=== PATIENT | female | born 1955 | race Caucasian/White ===

== ENCOUNTER 2017-06-06 18:41 | Emergency (ER) | payer SELFPAY ==
[~2017-06-06] VITALS: Ht 157.5 cm; Wt 94.9 kg
[~2017-06-06 18:41] MED LIST: AMT50 PO; LANS15CA6 PO; SIMV20TA2 PO
[2017-06-06 18:46] VITALS: TEMP 36.7; Ht 157.5 cm; Wt 94.9 kg
[2017-06-06] MEDS ORDERED: SODIUM CHLORIDE 0.9% 1000ML 1,000 ML IV STA (19:07)
[2017-06-06] MEDS ORDERED: DiphenhydrAMINE HCL 50 MG/ML VIAL IV STA (19:29)
[2017-06-06] MEDS ORDERED: METHYLPREDNISOLONE 125 MG VIAL IV STA (19:29)
[2017-06-06] MEDS ORDERED: CYAN10005 PO (19:35)
[2017-06-06] MEDS ORDERED: MAGN400T6 PO (19:35)
[2017-06-06] MEDS ORDERED: PRENTAB26 PO (19:35)
[2017-06-06] MEDS ORDERED: ACET-1256 PO (19:35)
[2017-06-06] MEDS ORDERED: FERR1TAB23 PO (19:35)
[2017-06-06] MEDS ORDERED: ASCO250T4 PO (19:35)
[2017-06-06] MEDS ORDERED: VITATAB19 PO (19:35)
[2017-06-06] MEDS ORDERED: BIOT1CAP8 PO (19:35)
[2017-06-06 19:39] LABS: BASO % 0.2 %; BASO ABS # 0.02 K/uL (0-0.2); COMPLETE YES; EOS % 1.7 %; LYMPH % 19.2 %; LYMPH ABS # 2.42 K/uL (1.2-3.4); MEAN CELL VOLUME 90.3 fL (80-100); MEAN CORPUSCULAR HGB CONC 33.3 g/dl (32-36); MEAN PLATELET VOLUME 9.6 fL (7.4-10.4); MONO % 8.6 %; NEUT % 69.3 %; PLATELET COUNT 384 K/uL (130-400); RED BLOOD COUNT 4.43 M/uL (4.2-5.4); WHITE BLOOD COUNT 12.58 K/uL (4.8-10.8)
[2017-06-06] MEDS ORDERED: OPTIRAY 320 IV PRN (19:45)
[2017-06-06 19:51] LABS: URINE APPEARANCE CLEAR (CLEAR); URINE BILIRUBIN NEG (NEG); URINE COLOR YELLOW; URINE NITRITE NEG (NEG); URINE PH 6.5 (4.5-7.5); URINE SPECIFIC GRAVITY 1.011 (1.000-1.030); UROBILINOGEN NEG (NEG)
[2017-06-06 19:54] LABS: ALT/SGPT 33 U/L (12-78); AST/SGOT 10 U/L (15-37); BLOOD UREA NITROGEN 10 mg/dl (7-18); BUN/CREATININE RATIO 12.1 (10-20); CALCIUM 9.5 mg/dl (8.5-10.1); CARBON DIOXIDE 28 mmol/L (21-32); CHLORIDE 106 mmol/L (98-107); CREATININE 0.84 mg/dl (0.60-1.20); GLUCOSE 96 mg/dl (70-99); SODIUM 141 mmol/L (136-145)
[2017-06-06 19:55] LABS: MANUAL MICROSCOPIC REQUIRED? NO; REVIEW REQ? NO
[2017-06-06 19:57] LABS: ALKALINE PHOSPHATASE 165 U/L (45-117)
--- NOTE | 2017-06-06 20:21 | DIAGNOSTIC IMAGING REPORT ---
ABD/PELVIS IV CONTRAST ONLY CT DOSE: 845.90 mGy.cm HISTORY: Pain eval diverticulitis, abscess, perf TECHNIQUE: Multiaxial CT images of the abdomen and pelvis were performed following the use of intravenous contrast. A dose lowering technique was utilized adhering to the principles of ALARA. COMPARISON STUDY: None. FINDINGS: Lung bases are clear. The liver spleen and pancreas are unremarkable. Gallbladder is contracted. There is a small gallstone the region of the gallbladder neck. The appendix is unremarkable. Kidneys negative for hydronephrosis. There are findings of acute descending as well as sigmoid diverticulitis. Moderate pericolonic infiltrative change. No evidence for abscess collection or obstruction. Moderate wall thickening. Bladder is midline. No free fluid within the pelvic cul-de-sac. The appendix is normal. IMPRESSION: 1. Acute sigmoid and descending colonic diverticulitis. 2. Moderate pericolonic infiltrative change. 3. No evidence for abscess collection or obstruction. 4. Small gallstone the region of the gallbladder neck with the gallbladder moderately contracted. The above report was generated using voice recognition software. It may contain grammatical, syntax or spelling errors. Electronically signed by: Ebenezer Oropeza M.D. 06/06/2017 8:19 PM Dictated Date/Time: 06/06/2017 8:16 PM
--- NOTE | 2017-06-06 21:16 | EMERGENCY ROOM VISIT NOTE ---
History First contact with patient: 18:52 Chief Complaint: ABDOMINAL PAIN Stated Complaint: LOWER ABDOMEN PAIN Nursing Triage Summary: pt c/o sharp abd pain for the past 2 weeks. denies n/v/d. state "my bowels are not acting appropriately". Hx of diverticulitis History of Present Illness The patient is a 61 year old female who presents to the Emergency Room with complaints of left lower quadrant pain for the past 2 weeks. She describes the pain as sharp, constant but comes and goes in severity, does not radiate, 02/25. She has had some associated loose bowel movements, but denies diarrhea, constipation, blood in her stool, nausea or vomiting, fevers. She does say that she has had some chills and night sweats off and on for the past several days. She reports a history of diverticulitis, states she has had at least 5 or 6 bouts in the past 10 years, and states that this feels similar. Abdominal surgical history includes a bilateral tubal ligation, denies any other abdominal surgeries. She has been taking Tylenol and Motrin at night for the pain, she denies any medications. She does note that she ran out of her medical insurance several months ago and has not been taking any of her prescribed medications and does not currently have a PCP. She denies any chest pain, shortness of breath, palpitations, dizziness or syncope, back pain, urinary symptoms, rash. Review of Systems A complete 10 point review of systems was reviewed with the patient with pertinent positives and negatives as per history of present illness. All else were negative. Past Medical/Surgical History GERD, migraines, depression Social History Smoking Status: Current Every Day Smoker Alcohol Use: none Drug Use: none Current/Historical Medications Scheduled Acetaminophen (Tylenol), 500 MG PO prn ud Amoxicillin & Pot Clavulanate (Augmentin 875-125 mg), 1 TAB PO BID Ascorbic Acid (Vitamin C), 1 CAP PO BID Biotin (Biotin), 1 CAP PO BID Cyanocobalamin (Vitamin B-12), 1 TAB PO BID Ferrous Sulfate (Iron), 1 TAB PO DAILY Magnesium Oxide (Mag-Ox), 400 MG PO BID Multivit/Min/Iron/Fol Ac/Pren ( Vitamin), 1 TAB PO DAILY Vitamin A-Beta Carotene (Vitamin A), 1 TAB PO DAILY Allergies Coded Allergies: Iodinated Contrast Media (Verified Allergy, Severe, DIFFICULTY BREATHING, 03/28/13) Sulfa Antibiotics (Verified Allergy, Severe, ITCHY, 06/06/17) Physical Exam Vital Signs Date Time Temp Pulse Resp B/P (MAP) Pulse Ox O2 Delivery O2 Flow Rate FiO2 06/06/17 22:11 77 18 132/76 94 06/06/17 20:56 79 18 119/73 95 Room Air 06/06/17 19:25 81 06/06/17 18:46 36.7 86 18 129/73 97 Room Air Physical Exam CONSTITUTIONAL: No acute distress. Mildly dehydrated, but otherwise well appearing and well nourished. Alert and oriented X 4 with normal affect. HEENT: Normocephalic, atraumatic. Pupils equal, round and reactive to light, EOMI. TMs normal. Pharynx normal. NECK: Supple, full active range of motion without discomfort. RESPIRATORY: Clear to auscultation bilaterally with no wheezing, crackles, rhonchi or stridor. Equal expansion bilaterally. CARDIOVASCULAR: Regular rate and rhythm with no murmurs, rubs or gallops. Normal peripheral perfusion. No edema. GASTROINTESTINAL: Significantly tender in the left lower quadrant, but no guarding or rebound tenderness, the abdomen is otherwise nontender. No CVA tenderness. Soft, nondistended. Bowel sounds present in all quadrants. MUSCULOSKELETAL: Full range of motion of all joints without discomfort. INTEGUMENTARY: No rash or other significant dermatologic conditions noted. NEUROLOGIC: Cranial nerves II-XII grossly intact. No focal neurologic deficits noted. Medical Decision & Procedures ER Provider Diagnostic Interpretation: ABD/PELVIS IV CONTRAST ONLY CT DOSE: 845.90 mGy.cm HISTORY: Pain eval diverticulitis, abscess, perf TECHNIQUE: Multiaxial CT images of the abdomen and pelvis were performed following the use of intravenous contrast. A dose lowering technique was utilized adhering to the principles of ALARA. COMPARISON STUDY: None. FINDINGS: Lung bases are clear. The liver spleen and pancreas are unremarkable. Gallbladder is contracted. There is a small gallstone the region of the gallbladder neck. The appendix is unremarkable. Kidneys negative for hydronephrosis. There are findings of acute descending as well as sigmoid diverticulitis. Moderate pericolonic infiltrative change. No evidence for abscess collection or obstruction. Moderate wall thickening. Bladder is midline. No free fluid within the pelvic cul-de-sac. The appendix is normal. IMPRESSION: 1. Acute sigmoid and descending colonic diverticulitis. 2. Moderate pericolonic infiltrative change. 3. No evidence for abscess collection or obstruction. 4. Small gallstone the region of the gallbladder neck with the gallbladder moderately contracted. Laboratory Results 06/06/17 19:20 Red Blood Count 4.43, Mean Corpuscular Volume 90.3, Mean Corpuscular Hemoglobin 30.0, Mean Corpuscular Hemoglobin Concent 33.3, Mean Platelet Volume 9.6, Neutrophils (%) (Auto) 69.3, Lymphocytes (%) (Auto) 19.2, Monocytes (%) (Auto) 8.6, Eosinophils (%) (Auto) 1.7, Basophils (%) (Auto) 0.2, Neutrophils # (Auto) 8.71, Lymphocytes # (Auto) 2.42, Monocytes # (Auto) 1.08, Eosinophils # (Auto) 0.22, Basophils # (Auto) 0.02 06/06/17 19:20 Test 06/06/17 19:20 White Blood Count 12.58 K/uL (4.8-10.8) Red Blood Count 4.43 M/uL (4.2-5.4) Hemoglobin 13.3 g/dL (12.0-16.0) Hematocrit 40.0 % (37-47) Mean Corpuscular Volume 90.3 fL (80-100) Mean Corpuscular Hemoglobin 30.0 pg (25-34) Mean Corpuscular Hemoglobin Concent 33.3 g/dl (32-36) Platelet Count 384 K/uL (130-400) Mean Platelet Volume 9.6 fL (7.4-10.4) Neutrophils (%) (Auto) 69.3 % Lymphocytes (%) (Auto) 19.2 % Monocytes (%) (Auto) 8.6 % Eosinophils (%) (Auto) 1.7 % Basophils (%) (Auto) 0.2 % Neutrophils # (Auto) 8.71 K/uL (1.4-6.5) Lymphocytes # (Auto) 2.42 K/uL (1.2-3.4) Monocytes # (Auto) 1.08 K/uL (0.11-0.59) Eosinophils # (Auto) 0.22 K/uL (0-0.5) Basophils # (Auto) 0.02 K/uL (0-0.2) RDW Standard Deviation 48.0 fL (36.4-46.3) RDW Coefficient of Variation 14.6 % (11.5-14.5) Immature Granulocyte % (Auto) 1.0 % Immature Granulocyte # (Auto) 0.13 K/uL (0.00-0.02) Urine Color YELLOW Urine Appearance CLEAR (CLEAR) Urine pH 6.5 (4.5-7.5) Urine Specific [place] 1.011 (1.000-1.030) Urine Protein NEG (NEG) Urine Glucose (UA) NEG (NEG) Urine Ketones NEG (NEG) Urine Occult Blood NEG (NEG) Urine Nitrite NEG (NEG) Urine Bilirubin NEG (NEG) Urine Urobilinogen NEG (NEG) Urine Leukocyte Esterase NEG (NEG) Anion Gap 7.0 mmol/L (3-11) Est Creatinine Clear Calc Drug Dose 77.4 ml/min Estimated GFR () 88.2 Estimated GFR (Non- 76.1 BUN/Creatinine Ratio 12.1 (10-20) Calcium Level 9.5 mg/dl (8.5-10.1) Total Bilirubin 0.3 mg/dl (0.2-1) Direct Bilirubin < 0.1 mg/dl (0-0.2) Aspartate Amino Transf (AST/SGOT) 10 U/L (15-37) Alanine Aminotransferase (ALT/SGPT) 33 U/L (12-78) Alkaline Phosphatase 165 U/L (45-117) Total Protein 7.3 gm/dl (6.4-8.2) Albumin 3.3 gm/dl (3.4-5.0) Lipase 213 U/L (73-393) Medications Administered Medications (Trade) Dose Ordered Sig/De Route Start Time Stop Time Status Last Admin Dose Admin Sodium Chloride 1,000 ml @ 999 mls/hr Q1H1M STAT IV 06/06/17 19:07 06/06/17 20:07 DC 06/06/17 19:23 999 MLS/HR Diphenhydramine HCl (Benadryl Inj) 25 mg NOW STAT IV 06/06/17 19:29 06/06/17 19:30 DC 06/06/17 19:37 25 MG Methylprednisolone Sodium Succinate (Solu-Medrol IV) 125 mg NOW STAT IV 06/06/17 19:29 06/06/17 19:30 DC 06/06/17 19:37 125 MG Amoxicillin/ Clavulanate Potassium (Augmentin Tab) 875 mg ONE ONCE PO 06/06/17 21:30 06/06/17 21:32 DC 06/06/17 22:07 875 MG Amoxicillin/ Clavulanate Potassium (Augmentin Tab) 875 mg BID PO 06/07/17 09:00 06/17/17 08:59 06/06/17 22:08 875 MG Medical Decision CC: Patient presenting with complaint of left lower quadrant pain Interpretation of Labs: Leukocytosis, no anemia, no significant electrolyte abnormalities, normal renal function, normal liver enzymes and lipase, UA negative. Differential Diagnosis: Includes, but not limited to diverticulitis, colitis, gastroenteritis, intra-abdominal abscess, bowel perforation, UTI, pyelonephritis , dehydration among others. Medication Reconciliation: I attest that I have personally reviewed the patient' s current medication list. Vital signs review: I reviewed the patient's vital signs and interpret them as follows: T: Afebrile; BP: Normotensive; HR: Within normal limits; RR: Within normal limits; Pulse Ox: Within normal limits on room air. Blood pressure screening: The patient was found to have normal blood pressure on screening and does not require follow-up for repeat blood pressure check. Summary: Patient was evaluated at bedside, history of physical exam performed. Patient is alert and in no acute distress, resting calmly in the stretcher. Patient is significantly tender in the left lower quadrant to palpation, the abdomen is otherwise nontender. Orders were placed at bedside for labs, UA, IV fluids for hydration, CT abdomen/ pelvis with IV contrast to evaluate for diverticulitis and other sequela. Patient was given IV Benadryl and IV Solu-Medrol to premedicate her for potential reaction to IV contrast dye, which she states she has done in the past with good results. Patient was offered something for pain, she declines this stating that her pain is tolerable at this time and she does not want to take anything sedating. Patient also believes that she is allergic to the oral contrast dye, and states she does not want to take this. Patient discussed with Dr. Swanson, who agrees with my assessment and plan. Labs reviewed as above, no acute abnormalities. CT imaging reviewed, consistent with acute diverticulitis, no abscess or perforation noted. Patient reassessed multiple times throughout ED stay, she reports improved pain and has been comfortable. Patient was updated on all results and plan for discharge home, she was given her first dose of Augmentin and sent with prescription for this. She was given strict return precautions should her symptoms worsen in any way, she verbalized understanding. Patient discharged home in stable condition and ambulatory. Impression Primary Impression: Diverticulitis Departure Information Dispostion Home / Self-Care Condition GOOD Prescriptions Amoxicillin & Pot Clavulanate (Augmentin 875-125 mg) 1 Tab Tab 1 TAB PO BID for 10 Days, #20 TAB Prov: Alisia Cortes CRNP 06/06/17 Referrals No Doctor, Assigned (PCP) Patient Instructions ED Diet Full Liquid, ED Diverticulitis, [facility] Additional Instructions You have been treated in the Emergency Department your Abdominal Pain. Laboratory results and imaging studies have confirmed diagnosis of acute diverticulitis, but do not show any any emergent issues which would warrant admission or surgery. You were prescribed Augmentin to be taken twice a day for 10 days. This is an antibiotic. All antibiotics have the potential to cause diarrhea. Stop this medication and contact a medical provider if you were to develop any significant adverse side effects including: wheezing, shortness of breath, passing out, vomiting, or a diffuse rash. Always take antibiotics as directed and COMPLETE the ENTIRE course regardless of the improvement of your symptoms. For pain control, you can use the following [id number] medicines (if >12 yo): - Regular strength (325mg/tab) Tylenol (acetaminophen) 2 tabs every 4-6 hours as needed. Do not exceed 10 tablets in a 24 hour period. Avoid taking more than 3000 mg of Tylenol per day. This includes any other sources of acetaminophen you may take on a regular basis. - Regular strength (200 mg/tab) Advil (ibuprofen) 1-2 tabs every 4-6 hours as needed. Do not exceed a dose of 2400 mg per day. You may take [id number] stool softener such as Colace or mild laxative such as MiraLAX as needed to help prevent constipation. Stop taking any of these medications can consult with your doctor if you develop diarrhea or blood in your stool. Drink plenty of fluids and stay well hydrated. Avoid any heavy, fatty, before meals foods which may irritate her bowels As with any trip to the Emergency Department, you should follow-up with your Primary Care Provider from today's visit. Return to the emergency department for any worsening symptoms, including severe worsening pain, fever/chills/feeling ill, persistent nausea/vomiting, blood in your stool or urine, or any other concerns. Work Instructions Return To Work: 2 days Problem Qualifiers Primary Impression: Diverticulitis Diverticulitis site: large intestine Diverticulitis bleeding: without bleeding Diverticulitis complication: without perforation or abscess Qualified Codes: K57.32 - Diverticulitis of large intestine without perforation or abscess without bleeding
[2017-06-06] MEDS ORDERED: AMOXICILLIN/CLAVULANATE TAB 875 MG TAB PO ONE (21:30)
[2017-06-06] MEDS ORDERED: AMOX875T PO (21:34)
[2017-06-06] MEDS ORDERED: EMPTY 8 DRAM VIAL ONE (21:44)
[2017-06-06 22:11] VITALS: BP 132/76; PULSE 77; O2SAT 94
[2017-06-07] MEDS ORDERED: AMOXICILLIN/CLAVULANATE TAB 875 MG TAB PO SCH (09:00)
== END 2017-06-06 22:11 | disposition home or self-care (01) ==
LOC: C.EDB 18:42
DX: K57.92 Diverticulitis of intestine, part unspecified, without perforation or abscess without bleeding (principal); F17.200 Nicotine dependence, unspecified, uncomplicated; K21.9 Gastro-esophageal reflux disease without esophagitis; F32.9 Major depressive disorder, single episode, unspecified